=== PATIENT | female | born 1975 | race African-American/Black ===

== ENCOUNTER 2019-02-16 18:27 | Emergency (ER) | payer MEDICAID ==
[~2019-02-16] VITALS: Ht 160 cm; Wt 90.0 kg
[2019-02-16 23:00] VITALS: BP 156/90
== END 2019-02-16 23:09 | disposition home or self-care (01) ==
LOC: EMS 18:30
DX: L03.116 Cellulitis of left lower limb (principal); L03.115 Cellulitis of right lower limb; B36.9 Superficial mycosis, unspecified